=== PATIENT | male | born 1990 | race Caucasian/White ===

== ENCOUNTER 2018-11-06 11:27 | Emergency (ER) | payer MEDICAID, SELFPAY ==
[2018-11-06 11:37] VITALS: PULSE 72; RESP 18; TEMP 36
[2018-11-06 11:39] VITALS: BP 129/83
--- NOTE | 2018-11-06 12:54 | ED.GENADUL_ITS ---
Discharge Plan Disposition Patient Disposition: HOME Condition: Good Discharge Details Chief Complaint: Laceration Clinical Impression: Laceration Primary Care Provider: None,None ED Provider: Julianna Joseph Home Meds and New Rx's Prescriptions: No Action No Known Home Meds RF: 0 Discharge Instructions Instructions: Laceration (ED) Additional Instructions: Keep initial dressing in place for 1 to 2 days. After initial dressing removal wash with soap and water once or twice daily. Wear finger splint when working Light amount of antibiotic ointment over the sutures. Keep dressing in place change at least daily. And son observe for any signs of infection. Suture removal in 14 days. Return for any worsening or concerns sooner if needed Discharge Data Discharge Date/Time-TO BE ENTERED AT DEPARTURE: 11/06/18 13:22 Medical Decision Making Patient sustained a laceration with 10 prior to arrival. 3 cm flap type laceration with insertion distally. Wound extensively irrigated and cleaned. Sutures placed for wound management. Counseled regarding patient management and care of laceration. Patient agrees with plan of care. HPI General Date/Time Provider Initiated Documentation: 11/06/18 11:34 . HPI Narrative: Patient presents for laceration to his left second digit. Patient reports he lacerated his second digit on a piece of 10. Injury occurred prior to arrival. Tetanus up-to-date. No numbness, tingling or weakness. No other concerns or complaints at this time. Related Data Home Medications Medication Instructions Recorded Confirmed Unknown [No Known Home Meds] 11/06/18 11/06/18 Allergies Allergy/AdvReac Type Severity Reaction Status Date / Time Penicillins Allergy Intermediate Hives Unverified 11/06/18 11:54 General Stated Complaint: Laceration SALOME: 4 Review of Systems Review of Systems Narrative: CONSTITUTIONAL: The patient denies fevers, chills. EYES: Denies vision changes, blurry vision, or eye pain. ENT: Denies hearing changes, tinnitus, vertigo, sore throat. CARDIAC: Denies chest pain, SOB. RESPIRATORY: Denies cough, sputum. Denies difficulty breathing. GASTROINTESTINAL: Denies abdominal pain, changes in bowel, vomiting or nausea. GENITOURINARY: Denies dysuria, or frequency of urination. MUSCULOSKELETAL: Denies Joint pain, gait changes. NEUROLOGIC: Denies headaches, Denies focal weakness. Denies numbness. INTEGUMENT: Denies rashes. Laceration PSYCHIATRIC: Denies behavior changes. Denies anxiety or depression. ENDOCRINOLOGY: Denies fatigue. PSYCHIATRY: Denies depression, agitation or anxiety ROS Unobtainable: All systems reviewed & are unremarkable except as noted in HPI and below PFSH Medical History ETOH abuse (Chronic) Smoker (Acute) Social History Smoking/Tobacco Use Status: Current-Occasional Drug use: Rarely Substance use type: marijuana Details: smokes less than 1 pack per month Do you feel safe at home: Yes Do you feel safe in your relationship?: Yes Exam Narrative Exam Narrative: CONST: Healthy appearing patient, in no acute distress. Well hydrated. Alert and alert. HENMT: Head nomocephalic, normal to inspection. Atraumatic. Hearing grossly normal. EYES: General normal appearance. Alignment normal. Eyelids normal. Conjunctiva normal. NECK: Normal visual inspection. FROM. Trachea midline. No Midline tenderness. CHEST: Normal insepection of the chest. RESP: Normal respiratory effort. Speaking full sentences. No cough. No audible wheezing. No retractions. CARDIO: No JVD. MUSCULOSKELETAL: Normal Gait. FROM of all extremities. SKIN: Normal. Dry. No rashes. Patient sustained a laceration to the left second digit dorsally overlying the proximal phalanx extending toward the PIP joint. No obvious loss of integrity to the joint capsule. Laceration does extend down to 2 the tendon however no tendon sheath or tendon laceration noted. Flexion extension intact. No focal weakness. No obvious vascular injury. Sensation intact distally. NEURO: Alert and awake. Speech clear. PSYCH: Normal affect. Cooperative. Course Vital Signs Vital signs: Vital Signs Temperature 36 C L 11/06/18 11:37 Pulse 72 11/06/18 11:37 Respiratory Rate 18 11/06/18 11:37 Temperature 36 C L 11/06/18 11:37 Pulse 72 11/06/18 11:37 Respiratory Rate 18 11/06/18 11:37 Respiratory Effort 11/06/18 11:54 Blood Pressure 129/83 11/06/18 11:39 Pain Level 1 11/06/18 11:37 Procedures Laceration Laceration 1: Site: upper extremity (flap with attatchment distally) Side (If applicable): left Size (cm): 3 Description: flap Depth: simple, single layer Local Anesthetic: Lidocaine 1% Amount of anesthesia used (mL): 3 Pre-repair: wound explored and irrigated extensively Skin layer closed with: other (prolene) Size (cm): 4-0 Number of sutures: 13 Technique: simple, interrupted
== END 2018-11-06 13:22 | disposition home or self-care (01) ==
PROVIDERS: Emergency Provider Physician Assistant
DX: S61.211A Laceration without foreign body of left index finger without damage to nail, initial encounter (principal); W26.8XXA Contact with other sharp object(s), not elsewhere classified, initial encounter
CPT/HCPCS: 12002

== ENCOUNTER 2022-12-14 18:22 | Outpatient (REF) | payer MEDICAID, SELFPAY ==
[2022-12-14 15:21] LABS: Hemoglobin A1C 5.3 % (<5.7)
[2022-12-14 15:42] LABS: ALT 53 U/L (16-63); AST 24 U/L (15-37); Albumin 4.2 g/dL (3.4-5.0); Alkaline Phosphatase 93 U/L (46-116); Anion Gap 11.4 mmol/L (3-11); BUN 17 mg/dL (7-18); Bilirubin, Total 0.5 mg/dL (0.2-1.0); CO2 25.6 mmol/L (21.0-32.0); CREATININE 0.7 mg/dL (0.70-1.30); Calcium 9.7 mg/dL (8.5-10.1); Calculated LDL 228 mg/dL (<100); Chloride 104 mmol/L (98-107); Cholesterol 291 mg/dL (<200); Glucose 143 mg/dL (74-106); HDL Cholesterol 42 mg/dL (40-60); Sodium 141 mmol/L (136-145); Total Protein 7.7 g/dL (6.4-8.2); Triglyceride 106 mg/dL (<150)
[2022-12-15 13:48] LABS: Chlamydia Result Negative (Negative); GC Result Negative (Negative)
[2022-12-17 10:53] LABS: Syphilis Serology (RPR) Negative (Negative)
[2022-12-17 11:17] LABS: HIV-1/2 Ag & Ab Screen Negative (Negative)
== END 2022-12-14 18:23 | disposition home or self-care (01) ==
LOC: NCHCN 18:22
PROVIDERS: PCP Family Medicine; Visit Provider Family Medicine
DX: E66.9 Obesity, unspecified (principal); E78.01 Familial hypercholesterolemia; Z11.4 Encounter for screening for human immunodeficiency virus [HIV]; Z11.3 Encounter for screening for infections with a predominantly sexual mode of transmission
CPT/HCPCS: 80053; 80061; 87389; 87491; 87591; 83036; 86592

== ENCOUNTER 2023-03-22 14:59 | Outpatient (REF) | payer MEDICAID, SELFPAY ==
[2023-03-22 15:02] LABS: ALT 109 U/L (16-63); AST 39 U/L (15-37); Albumin 4.4 g/dL (3.4-5.0); Alkaline Phosphatase 96 U/L (46-116); Anion Gap 8.8 mmol/L (3-11); BUN 13 mg/dL (7-18); Bilirubin, Total 0.5 mg/dL (0.2-1.0); CO2 26.2 mmol/L (21.0-32.0); CREATININE 0.7 mg/dL (0.70-1.30); Calcium 9.6 mg/dL (8.5-10.1); Calculated LDL 119 mg/dL (<100); Chloride 104 mmol/L (98-107); Cholesterol 183 mg/dL (<200); Glucose 102 mg/dL (74-106); HDL Cholesterol 48 mg/dL (40-60); Potassium 4.2 mmol/L (3.5-5.1); Sodium 139 mmol/L (136-145); Total Protein 7.7 g/dL (6.4-8.2); Triglyceride 81 mg/dL (<150)
[2023-03-22 23:05] LABS: Hepatitis C Ab w Rflx HCV PCR Negative (Negative)
== END 2023-03-22 15:00 | disposition home or self-care (01) ==
LOC: NCHCN 14:59
PROVIDERS: PCP Family Medicine; Visit Provider Family Medicine
DX: E78.01 Familial hypercholesterolemia (principal); Z11.3 Encounter for screening for infections with a predominantly sexual mode of transmission; Z11.59 Encounter for screening for other viral diseases
CPT/HCPCS: 80053; 80061; 86803

== ENCOUNTER 2023-07-18 18:16 | Outpatient (REF) | payer MEDICAID, SELFPAY ==
[2023-07-18 16:35] LABS: ALT 78 U/L (16-63); AST 27 U/L (15-37); Albumin 4.2 g/dL (3.4-5.0); Alkaline Phosphatase 100 U/L (46-116); Anion Gap 9.1 mmol/L (3-11); BUN 18 mg/dL (7-18); Bilirubin, Total 0.6 mg/dL (0.2-1.0); CO2 26.9 mmol/L (21.0-32.0); CREATININE 0.8 mg/dL (0.70-1.30); Calcium 9.1 mg/dL (8.5-10.1); Chloride 107 mmol/L (98-107); Glucose 104 mg/dL (74-106); Potassium 4.2 mmol/L (3.5-5.1); Sodium 143 mmol/L (136-145); Total Protein 7.2 g/dL (6.4-8.2)
== END 2023-07-18 18:17 | disposition home or self-care (01) ==
LOC: NCHCN 18:16
PROVIDERS: PCP Family Medicine; Visit Provider Family Medicine
DX: R74.01 Elevation of levels of liver transaminase levels (principal)
CPT/HCPCS: 80053

== ENCOUNTER → 2023-08-08 00:31 | Outpatient (CLI) | payer MEDICAID, SELFPAY ==
--- NOTE | 2023-08-08 | DI.US_ITS ---
Exam(s) US ABDOMEN EXAM: US ABDOMEN CLINICAL HISTORY: R74.01 Elevation of levels of liver transaminase levels, also w/prominence TECHNIQUE: Ultrasound abdomen performed using standard protocol. COMPARISON: No exams were available for comparison FINDINGS: ABDOMINAL AORTA AND IVC: Visualized portions normal caliber. PANCREAS: Normal where visualized. LIVER: There is diffuse increased echogenicity of the liver suggesting fatty infiltration. The liver measures 15.3 cm long. Hepatopetal flow in the Portal Vein. GALLBLADDER:No evidence of cholelithiasis. No evidence of wall thickening. No pericholecystic fluid i dentified. BILIARY SYSTEM: Common bile duct measures < 7 mm. No intrahepatic biliary ductal dilation. MCWILLIAMS'S SIGN: Negative. KIDNEYS: Kidneys are symmetric in size. No evidence of renal calculi. No evidence of hydronephrosis. No renal mass or cyst identified. SPLEEN: Not enlarged. ASCITES: None seen. The area of concern in the midline of the abdomen was interrogated sonographically and was unremarkab le. IMPRESSION: Hepatic steatosis. DATA REPOSITORY:
== END ==
PROVIDERS: PCP Family Medicine; Visit Provider Family Medicine
DX: R74.01 Elevation of levels of liver transaminase levels (principal); K76.0 Fatty (change of) liver, not elsewhere classified
CPT/HCPCS: 76700

== ENCOUNTER 2024-08-08 17:14 | Outpatient (REF) | payer MEDICAID, SELFPAY | END 2024-08-08 17:15 | disposition home or self-care (01) | LOC: LBN 17:14 | PROVIDERS: PCP Family Medicine; Visit Provider Physician Assistant Medical | DX: J02.9 Acute pharyngitis, unspecified (principal) | CPT/HCPCS: 87070 ==